=== PATIENT | female | born 1940 | race Caucasian/White ===

== ENCOUNTER 2020-10-31 11:40 | Inpatient (IN) | payer OTHER ==
[2020-10-31] MEDS ORDERED: ACETAMINOPHEN 1000 MG/100 ML VIAL (NON FORMULARY) IVPB ONE (11:48)
[2020-10-31] MEDS ORDERED: LACTATED RINGERS SOLUTION 1000 ML INFUS.BAG IV STA (12:12)
[2020-10-31] MEDS ORDERED: ACETAMINOPHEN INJECTION 100 ML IVPB ONE (12:46)
[2020-10-31 12:49] LABS: HEMATOCRIT 39.3 % (32.4-45.2); HEMOGLOBIN 13.2 GM/dl (10.7-15.3); MCH 30.5 pg (25.7-33.7); MCHC 33.6 g/dl (32.0-36.0); MEAN CELL VOLUME 90.6 fl (80-96); MEAN PLT VOLUME 8.8 fl (7.5-11.1); PLATELET COUNT 229 K/MM3 (134-434); RBC 4.34 M/mm3 (3.60-5.2); RDW 12.5 % (11.6-15.6); WHITE BLOOD COUNT 4.8 K/mm3 (4.0-10.8)
[2020-10-31 13:12] LABS: ACTIVATED PTT 28.3 SECONDS (25.2-36.5)
[2020-10-31 13:14] LABS: ALBUMIN 3.6 g/dl (3.4-5.0); BILIRUBIN,TOTAL 0.3 mg/dl (0.2-1); CALCIUM 8.4 mg/dl (8.5-10); CREATININE 1.1 mg/dl (0.55-1.3); TOT PROT 7.7 g/dl (6.4-8.2)
[2020-10-31] MEDS ORDERED: DEXAMETHASONE SOD PHOSPHATE 10 MG/1 ML VIAL IVPUSH ONE (13:15)
[2020-10-31 13:17] LABS: INR 1.11 (0.82-1.09); PROTHROMBIN TIME (PATIENT) 12.3 SEC (10.2-13.0)
[2020-10-31 13:41] LABS: EPITHELIAL CELLS FEW /hpf
[2020-10-31 13:55] LABS: PLATELET ESTIMATE ADEQUATE
[2020-10-31] MEDS ORDERED: DEXAMETHASONE SOD PHOSPHATE 10 MG/1 ML VIAL ONE (14:19)
[2020-11-01] MEDS ORDERED: CEFTRIAXONE 1 GM in DEXTROSE 5%-WATER - 50 ML IVPB ONE (03:07)
[2020-11-01] MEDS ORDERED: AZITHROMYCIN IVPB 250 MG in DEXTROSE 5%-WATER - 250 ML IVPB ONE (03:15)
[2020-11-01] MEDS: SODIUM CHLORIDE 1,000 ML IV SCH (03:21)
[2020-11-01] MEDS ORDERED: cefTRIAXone SODIUM 1 GM VIAL ONE (03:26)
[2020-11-01] MEDS ORDERED: AZITHROMYCIN 500 MG VIAL IVPB ONE (03:26)
[2020-11-01 07:42] LABS: CALCIUM 8.3 mg/dl (8.5-10); CREATININE 0.8 mg/dl (0.55-1.3)
[2020-11-01 08:03] LABS: HEMATOCRIT 36.8 % (32.4-45.2); MCH 29.8 pg (25.7-33.7); MCHC 32.7 g/dl (32.0-36.0); MEAN PLT VOLUME 8.6 fl (7.5-11.1); PLATELET COUNT 242 K/MM3 (134-434); RBC 4.04 M/mm3 (3.60-5.2); RDW 12.4 % (11.6-15.6)
[2020-11-01] MEDS ORDERED: DEXAMETHASONE SOD PHOSPHATE 4 MG/1 ML VIAL IVPB ONE (10:00)
[2020-11-01] MEDS: ENOXAPARIN NA (PORCINE) 40 MG/0.4 ML DISP.SYRIN SQ SCH (10:43)
[2020-11-01] MEDS: ASCORBIC ACID 500 MG TABLET (FP) PO SCH (10:43)
[2020-11-01] MEDS: ZINC SULFATE 220 MG CAPSULE (FP) PO SCH (10:43)
[2020-11-01] MEDS: DEXAMETHASONE SOD PHOSPHATE 4 MG/1 ML VIAL IVPB SCH (10:44)
[2020-11-02] MEDS: ASCORBIC ACID 500 MG TABLET (FP) PO SCH ×4 (02:11→22:57)
[2020-11-02] MEDS: SODIUM CHLORIDE 1,000 ML IV SCH (02:12)
[2020-11-02 03:57] VITALS: BMI 21.7
[2020-11-02] MEDS: DEXAMETHASONE SOD PHOSPHATE 4 MG/1 ML VIAL IVPB SCH (10:04)
[2020-11-02] MEDS: CHOLECALCIFEROL (VIT D3) 400 UNIT (10 MCG) TABLET PO SCH (10:04)
[2020-11-02] MEDS: ZINC SULFATE 220 MG CAPSULE (FP) PO SCH (10:04)
[2020-11-02] MEDS: ENOXAPARIN NA (PORCINE) 40 MG/0.4 ML DISP.SYRIN SQ SCH (10:05)
[2020-11-02] MEDS ORDERED: amLODIPine BESYLATE 5 MG TABLET (FP) PO ONE (18:51)
[2020-11-03 08:49] LABS: BASO % 0.1 % (0-2.0); HEMATOCRIT 37.3 % (32.4-45.2); HEMOGLOBIN 12.6 GM/dL (10.7-15.3); LYMPH % 8.8 % (8-40); MCH 30.1 pg (25.7-33.7); MCHC 33.9 g/dl (32.0-36.0); MEAN PLT VOLUME 8.2 fl (7.5-11.1); MONO % 8.1 % (3.8-10.2); PLATELET COUNT 345 K/MM3 (134-434); RBC 4.19 M/mm3 (3.60-5.2); RDW 13.2 % (11.6-15.6); WHITE BLOOD COUNT 9.9 K/mm3 (4.0-10.0)
[2020-11-03 09:12] LABS: ALBUMIN 2.8 g/dl (3.4-5.0)
[2020-11-03 09:13] LABS: CALCIUM 8.7 mg/dL (8.5-10.1)
[2020-11-03 09:14] LABS: BLOOD UREA NITROGEN 14.6 mg/dL (7-18)
[2020-11-03 09:15] LABS: BILIRUBIN,TOTAL 0.3 mg/dL (0.2-1); MAGNESIUM 1.8 mg/dL (1.8-2.4)
[2020-11-03 09:17] LABS: CREATININE 0.8 mg/dL (0.55-1.3); PHOSPHOROUS 2.5 mg/dL (2.5-4.9)
[2020-11-03] MEDS ORDERED: FAMOTIDINE 20 MG/50 ML IVPB 20 MG/50 ML MG IVPB SCH ×2 (10:00)
[2020-11-03] MEDS: CHOLECALCIFEROL (VIT D3) 400 UNIT (10 MCG) TABLET PO SCH (10:38)
[2020-11-03] MEDS: ASCORBIC ACID 500 MG TABLET (FP) PO SCH ×2 (10:39→23:17)
[2020-11-03] MEDS: DEXAMETHASONE SOD PHOSPHATE 4 MG/1 ML VIAL IVPB SCH (10:39)
[2020-11-03] MEDS: ZINC SULFATE 220 MG CAPSULE (FP) PO SCH (10:39)
[2020-11-03] MEDS: amLODIPine BESYLATE 5 MG TABLET (FP) PO SCH (10:39)
[2020-11-03] MEDS: ENOXAPARIN NA (PORCINE) 40 MG/0.4 ML DISP.SYRIN SQ SCH (10:39)
[2020-11-03] MEDS: ONDANSETRON 4 MG/2 ML VIAL IVPUSH ONE ×2 (14:28→14:44)
[2020-11-03] MEDS ORDERED: REMDESIVIR 200 MG in SODIUM CHLORIDE 210 ML IVPB ONE (15:30)
[2020-11-03] MEDS: traZODone HCL 50 MG TABLET (FP) PO SCH (23:17)
[2020-11-04] MEDS: ENOXAPARIN NA (PORCINE) 40 MG/0.4 ML DISP.SYRIN SQ SCH (10:15)
[2020-11-04] MEDS: ASCORBIC ACID 500 MG TABLET (FP) PO SCH ×2 (10:15→21:23)
[2020-11-04] MEDS: CHOLECALCIFEROL (VIT D3) 400 UNIT (10 MCG) TABLET PO SCH (10:16)
[2020-11-04] MEDS: PANTOPRAZOLE 20 MG TABLET PO SCH (10:16)
[2020-11-04] MEDS: ZINC SULFATE 220 MG CAPSULE (FP) PO SCH (10:16)
[2020-11-04] MEDS: DEXAMETHASONE SOD PHOSPHATE 4 MG/1 ML VIAL IVPB SCH (10:16)
[2020-11-04] MEDS: amLODIPine BESYLATE 5 MG TABLET (FP) PO SCH (10:16)
[2020-11-04 12:48] LABS: HEMATOCRIT 37.1 % (32.4-45.2); HEMOGLOBIN 12.4 GM/dL (10.7-15.3); MCH 29.7 pg (25.7-33.7); MCHC 33.3 g/dl (32.0-36.0); MEAN CELL VOLUME 89.4 fl (80-96); MEAN PLT VOLUME 8.2 fl (7.5-11.1); PLATELET COUNT 367 K/MM3 (134-434); RBC 4.16 M/mm3 (3.60-5.2); RDW 13.4 % (11.6-15.6); WHITE BLOOD COUNT 8.7 K/mm3 (4.0-10.0)
[2020-11-04 13:04] LABS: ALBUMIN 2.7 g/dl (3.4-5.0); CALCIUM 8.5 mg/dL (8.5-10.1)
[2020-11-04 13:08] LABS: BILIRUBIN,TOTAL 0.4 mg/dL (0.2-1); CREATININE 0.9 mg/dL (0.55-1.3); TOT PROT 6.6 g/dl (6.4-8.2)
[2020-11-04] MEDS: REMDESIVIR 100 MG in SODIUM CHLORIDE 230 ML IVPB SCH (14:13)
[2020-11-04] MEDS: traZODone HCL 50 MG TABLET (FP) PO SCH (21:23)
[2020-11-05 10:01] LABS: BASO % 0.1 % (0-2.0); HEMATOCRIT 38.7 % (32.4-45.2); HEMOGLOBIN 12.9 GM/dL (10.7-15.3); LYMPH % 10.4 % (8-40); MCH 29.9 pg (25.7-33.7); MCHC 33.4 g/dl (32.0-36.0); MEAN CELL VOLUME 89.5 fl (80-96); MEAN PLT VOLUME 8.3 fl (7.5-11.1); MONO % 15.8 % (3.8-10.2); NEUT % 73.7 % (42.8-82.8); PLATELET COUNT 468 K/MM3 (134-434); RBC 4.32 M/mm3 (3.60-5.2); RDW 13.4 % (11.6-15.6); WHITE BLOOD COUNT 6.4 K/mm3 (4.0-10.0)
[2020-11-05] MEDS: CHOLECALCIFEROL (VIT D3) 400 UNIT (10 MCG) TABLET PO SCH (10:01)
[2020-11-05] MEDS: DEXAMETHASONE SOD PHOSPHATE 4 MG/1 ML VIAL IVPB SCH (10:01)
[2020-11-05] MEDS: ASCORBIC ACID 500 MG TABLET (FP) PO SCH ×2 (10:01→21:40)
[2020-11-05] MEDS: PANTOPRAZOLE 20 MG TABLET PO SCH (10:01)
[2020-11-05] MEDS: ZINC SULFATE 220 MG CAPSULE (FP) PO SCH (10:01)
[2020-11-05] MEDS: amLODIPine BESYLATE 5 MG TABLET (FP) PO SCH (10:01)
[2020-11-05] MEDS: ENOXAPARIN NA (PORCINE) 40 MG/0.4 ML DISP.SYRIN SQ SCH (10:01)
[2020-11-05 10:13] LABS: ALBUMIN 2.7 g/dl (3.4-5.0); CALCIUM 8.9 mg/dL (8.5-10.1)
[2020-11-05 10:14] LABS: BLOOD UREA NITROGEN 30.4 mg/dL (7-18); MAGNESIUM 2.2 mg/dL (1.8-2.4)
[2020-11-05 10:16] LABS: CREATININE 0.9 mg/dL (0.55-1.3); PHOSPHOROUS 3.3 mg/dL (2.5-4.9)
[2020-11-05 10:17] LABS: BILIRUBIN,TOTAL 0.3 mg/dL (0.2-1); TOT PROT 6.7 g/dl (6.4-8.2)
[2020-11-05] MEDS: REMDESIVIR 100 MG in SODIUM CHLORIDE 230 ML IVPB SCH (14:17)
[2020-11-05] MEDS: traZODone HCL 50 MG TABLET (FP) PO SCH (21:40)
[2020-11-06 09:50] LABS: BASO % 0.1 % (0-2.0); HEMATOCRIT 38.1 % (32.4-45.2); HEMOGLOBIN 12.8 GM/dL (10.7-15.3); LYMPH % 12.7 % (8-40); MCH 29.9 pg (25.7-33.7); MCHC 33.6 g/dl (32.0-36.0); MEAN CELL VOLUME 88.9 fl (80-96); MEAN PLT VOLUME 8.2 fl (7.5-11.1); MONO % 12.4 % (3.8-10.2); NEUT % 74.8 % (42.8-82.8); PLATELET COUNT 506 K/MM3 (134-434); RBC 4.28 M/mm3 (3.60-5.2); RDW 13.1 % (11.6-15.6); WHITE BLOOD COUNT 6.4 K/mm3 (4.0-10.0)
[2020-11-06 10:19] LABS: ALBUMIN 2.6 g/dl (3.4-5.0); PHOSPHOROUS 2.8 mg/dL (2.5-4.9)
[2020-11-06 10:20] LABS: BILIRUBIN,TOTAL 0.3 mg/dL (0.2-1); TOT PROT 6.5 g/dl (6.4-8.2)
[2020-11-06 10:22] LABS: CALCIUM 8.4 mg/dL (8.5-10.1); CREATININE 0.8 mg/dL (0.55-1.3)
[2020-11-06 10:24] LABS: BLOOD UREA NITROGEN 25.5 mg/dL (7-18)
[2020-11-06] MEDS: ENOXAPARIN NA (PORCINE) 40 MG/0.4 ML DISP.SYRIN SQ SCH (10:24)
[2020-11-06] MEDS: CHOLECALCIFEROL (VIT D3) 400 UNIT (10 MCG) TABLET PO SCH (10:24)
[2020-11-06] MEDS: DEXAMETHASONE SOD PHOSPHATE 4 MG/1 ML VIAL IVPUSH SCH (10:25)
[2020-11-06] MEDS: amLODIPine BESYLATE 5 MG TABLET (FP) PO SCH (10:25)
[2020-11-06] MEDS: ZINC SULFATE 220 MG CAPSULE (FP) PO SCH (10:25)
[2020-11-06] MEDS: ASCORBIC ACID 500 MG TABLET (FP) PO SCH ×2 (10:25→22:05)
[2020-11-06] MEDS: PANTOPRAZOLE 20 MG TABLET PO SCH (10:25)
[2020-11-06] MEDS: REMDESIVIR 100 MG in SODIUM CHLORIDE 230 ML IVPB SCH (14:32)
[2020-11-06] MEDS: traZODone HCL 50 MG TABLET (FP) PO SCH (22:05)
[2020-11-07 08:55] LABS: BASO % 0.2 % (0-2.0); EOS % 0.2 % (0-4.5); HEMOGLOBIN 12.7 GM/dL (10.7-15.3); LYMPH % 13.1 % (8-40); MCH 30.4 pg (25.7-33.7); MCHC 34.4 g/dl (32.0-36.0); MEAN CELL VOLUME 88.3 fl (80-96); MEAN PLT VOLUME 8.1 fl (7.5-11.1); MONO % 13.4 % (3.8-10.2); NEUT % 73.1 % (42.8-82.8); PLATELET COUNT 507 K/MM3 (134-434); RBC 4.19 M/mm3 (3.60-5.2); RDW 12.9 % (11.6-15.6); WHITE BLOOD COUNT 7.8 K/mm3 (4.0-10.0)
[2020-11-07 09:24] LABS: ALBUMIN 2.6 g/dl (3.4-5.0); BLOOD UREA NITROGEN 27.8 mg/dL (7-18); CALCIUM 8.7 mg/dL (8.5-10.1); MAGNESIUM 1.9 mg/dL (1.8-2.4)
[2020-11-07 09:27] LABS: CREATININE 0.8 mg/dL (0.55-1.3); PHOSPHOROUS 2.9 mg/dL (2.5-4.9)
[2020-11-07 09:28] LABS: BILIRUBIN,TOTAL 0.6 mg/dL (0.2-1)
[2020-11-07 09:29] LABS: TOT PROT 6.3 g/dl (6.4-8.2)
[2020-11-07] MEDS ORDERED: PT OWN MED DRAWER 7, Y5N ONE ×2 (11:07→12:07)
[2020-11-07] MEDS: DEXAMETHASONE SOD PHOSPHATE 4 MG/1 ML VIAL IVPUSH SCH (11:13)
[2020-11-07] MEDS: CHOLECALCIFEROL (VIT D3) 400 UNIT (10 MCG) TABLET PO SCH (11:14)
[2020-11-07] MEDS: amLODIPine BESYLATE 5 MG TABLET (FP) PO SCH (11:14)
[2020-11-07] MEDS: ASCORBIC ACID 500 MG TABLET (FP) PO SCH ×2 (11:14→21:14)
[2020-11-07] MEDS: ENOXAPARIN NA (PORCINE) 40 MG/0.4 ML DISP.SYRIN SQ SCH (11:14)
[2020-11-07] MEDS: ZINC SULFATE 220 MG CAPSULE (FP) PO SCH (11:14)
[2020-11-07] MEDS: PANTOPRAZOLE 20 MG TABLET PO SCH (11:14)
[2020-11-07] MEDS: REMDESIVIR 100 MG in SODIUM CHLORIDE 230 ML IVPB SCH (15:05)
[2020-11-07] MEDS: traZODone HCL 50 MG TABLET (FP) PO SCH (21:14)
[2020-11-08 08:56] LABS: BASO % 0.3 % (0-2.0); EOS % 0.4 % (0-4.5); HEMATOCRIT 39.1 % (32.4-45.2); HEMOGLOBIN 13.4 GM/dL (10.7-15.3); LYMPH % 14.7 % (8-40); MCHC 34.2 g/dl (32.0-36.0); MEAN CELL VOLUME 87.7 fl (80-96); MEAN PLT VOLUME 8.3 fl (7.5-11.1); MONO % 15.7 % (3.8-10.2); NEUT % 68.9 % (42.8-82.8); PLATELET COUNT 531 K/MM3 (134-434); RBC 4.46 M/mm3 (3.60-5.2); RDW 13.2 % (11.6-15.6); WHITE BLOOD COUNT 6.7 K/mm3 (4.0-10.0)
[2020-11-08] MEDS ORDERED: PT OWN MED DRAWER 7, Y5N ONE (08:56)
[2020-11-08] MEDS: DEXAMETHASONE SOD PHOSPHATE 4 MG/1 ML VIAL IVPUSH SCH (09:10)
[2020-11-08] MEDS: amLODIPine BESYLATE 5 MG TABLET (FP) PO SCH (09:11)
[2020-11-08] MEDS: ASCORBIC ACID 500 MG TABLET (FP) PO SCH (09:11)
[2020-11-08] MEDS: PANTOPRAZOLE 20 MG TABLET PO SCH (09:11)
[2020-11-08] MEDS: CHOLECALCIFEROL (VIT D3) 400 UNIT (10 MCG) TABLET PO SCH (09:11)
[2020-11-08] MEDS: ZINC SULFATE 220 MG CAPSULE (FP) PO SCH (09:11)
[2020-11-08 09:15] LABS: CALCIUM 8.4 mg/dL (8.5-10.1)
[2020-11-08 09:16] LABS: ALBUMIN 2.7 g/dl (3.4-5.0); BLOOD UREA NITROGEN 29.1 mg/dL (7-18); MAGNESIUM 1.9 mg/dL (1.8-2.4)
[2020-11-08 09:19] LABS: CREATININE 0.9 mg/dL (0.55-1.3); PHOSPHOROUS 2.8 mg/dL (2.5-4.9)
[2020-11-08 09:20] LABS: BILIRUBIN,TOTAL 0.4 mg/dL (0.2-1); TOT PROT 6.3 g/dl (6.4-8.2)
[2020-11-08 14:27] VITALS: BP 128/66; PULSE 85; TEMP 97.9
== END 2020-11-08 15:10 | disposition home health service (06) | DRG 177 ==
LOC: FER 11:40 → J8W 16:03
PROVIDERS: ADMIT Hospitalist; ATTEND Internal Medicine
PROC: XW033E5 Introduction of Remdesivir Anti-infective into Peripheral Vein, Percutaneous Approach, New Technology Group 5 (ICD-10-PCS; principal; 2020-11-03)
DX: U07.1 COVID-19 (principal); J12.82 Pneumonia due to coronavirus disease 2019; J96.01 Acute respiratory failure with hypoxia; E87.1 Hypo-osmolality and hyponatremia; R53.1 Weakness; I16.0 Hypertensive urgency; R63.0 Anorexia; R11.2 Nausea with vomiting, unspecified
CPT/HCPCS: 36415; 71045-TC-FY; 80048; 80053; 81003; 81015; 82550; 82728; 83605; 83615; 83735; 84100; 84484; 85025; 85027; 85379; 85610; 85730; 86140; 86769; 86850; 86900; 86901; 87040; 87086; 87804; 93005; 94761; 99285-25; C9399; C9803; J0131; J1100; U0003; U0005